=== PATIENT | female | born 1980 | race Caucasian/White ===

== ENCOUNTER 2020-02-17 04:10 | Emergency (ER) | payer SELFPAY ==
[~2020-02-17] VITALS: Ht 157.5 cm; Wt 57.2 kg
[2020-02-17 04:20] VITALS: BP 153/90
--- NOTE | 2020-02-17 04:20 | NUR ---
BROUGHT IN BY MICHELL PINA FOR PREBOOK
[2020-02-17 04:42] VITALS: BP 153/90
--- NOTE | 2020-02-17 04:42 | NUR ---
PATIENT BIB [place] [employer]. PATIENT EXAMINED BY DR. PANG. PATIENT MEDICALLY CLEARED AND RELEASED IN CUSTODY IN STABLE CONDITION. ORIGINAL PRE-BOOK FORM GIVEN TO OFFICER KATJA #[id number]
--- NOTE | 2020-02-17 04:42 | NUR ---
Patient discharged with v/s stable. Written and verbal after care instructions given and explained. Patient verbalized understanding. Police with in custody. All questions addressed prior to discharge. Advised to follow up with PMD.
== END 2020-02-17 04:42 | disposition home or self-care (01) ==
LOC: MED 04:10
DX: R45.83 Excessive crying of child, adolescent or adult (principal); Z02.89 Encounter for other administrative examinations
CPT/HCPCS: 99283